=== PATIENT | male | born 1985 | race Caucasian/White ===

== ENCOUNTER 2019-07-26 02:07 | Emergency (ER) | payer OTHER ==
[~2019-07-26] VITALS: Ht 170.2 cm; Wt 81.7 kg
[~2019-07-26 02:07] MED LIST: BACTRIM DS TAB1 EACH PO; CLEOCIN HCL300 MG PO; NAUSEA MED; NOHOMEMEDICATIONS; NORCO 5-325 TA1 EACH PO; PENICILLIN VK500 M1 PO; PREDNISONE50 MG PO; ZOFRAN4 MG PO; ZPAK PO
[2019-07-26] MEDS ORDERED: PROVIGIL 100 M100 MG PO (02:53)
[2019-07-26] MEDS ORDERED: CARAFATE 1 GM TA1 GM PO (02:53)
[2019-07-26] MEDS ORDERED: PROTONIX40 MG PO (02:53)
[2019-07-26 03:06] VITALS: BP 139/62
== END 2019-07-26 03:06 | disposition home or self-care (01) ==
LOC: M.ERS 02:07
DX: K21.9 Gastro-esophageal reflux disease without esophagitis (principal); F41.9 Anxiety disorder, unspecified; J45.909 Unspecified asthma, uncomplicated; F17.210 Nicotine dependence, cigarettes, uncomplicated; Z90.49 Acquired absence of other specified parts of digestive tract

== ENCOUNTER 2020-12-10 23:09 | Emergency (ER) | payer OTHER ==
[~2020-12-10] VITALS: Ht 170.2 cm; Wt 81.7 kg
[~2020-12-10 23:09] MED LIST changes: +CARAFATE 1 GM TA1 GM PO; +PROTONIX40 MG PO; +PROVIGIL 100 M100 MG PO
[2020-12-11] MEDS ORDERED: CYCLOBENZAPRINE5 MG PO (01:11)
[2020-12-11] MEDS ORDERED: GABAPENTIN100 MG PO (01:11)
[2020-12-11] MEDS ORDERED: TORADOL 10 MG T10 MG PO (01:11)
[2020-12-11 01:21] VITALS: BP 105/74
== END 2020-12-11 01:22 | disposition home or self-care (01) ==
LOC: M.ERS 23:09
DX: M54.10 Radiculopathy, site unspecified (principal); M62.838 Other muscle spasm; J45.909 Unspecified asthma, uncomplicated; F17.210 Nicotine dependence, cigarettes, uncomplicated

== ENCOUNTER 2021-03-15 14:17 | Emergency (ER) | payer OTHER ==
[~2021-03-15] VITALS: Ht 170.2 cm; Wt 81.7 kg
[~2021-03-15 14:17] MED LIST changes: +CYCLOBENZAPRINE5 MG PO; +GABAPENTIN100 MG PO; +TORADOL 10 MG T10 MG PO
[2021-03-15] MEDS ORDERED: ZOFRAN ODT4 MG DISSOLVE (14:36)
[2021-03-15 14:42] VITALS: BP 135/80
== END 2021-03-15 14:42 | disposition home or self-care (01) ==
LOC: M.ERS 14:17
DX: B34.9 Viral infection, unspecified (principal); J45.909 Unspecified asthma, uncomplicated; F17.210 Nicotine dependence, cigarettes, uncomplicated